=== PATIENT | female | born 1975 | race Hispanic/Latino ===

== ENCOUNTER 2017-01-22 09:19 | Outpatient (CLI) | payer MEDICARE, MEDICAID ==
[2017-01-22 10:13] LABS: ALT (SGPT) 7 U/L (0-55); AST (SGOT) 12 U/L (5-34); Albumin 3.8 g/dL (3.5-5.0); Alkaline Phosphatase 76 U/L (40-150); Anion Gap 12 mmol/L (10-20); BUN (Urea Nitrogen) 22 mg/dL (7.0-18.7); Bilirubin, Total 0.4 mg/dL (0.2-1.2); Calc. Creatinine Clearance 0 mL/min (70-130); Carbon Dioxide 22 mmol/L (22-29); Cardiac Risk 3.6 (Less than 4.5); Chloride 111 mmol/L (98-107); Cholesterol 193 mg/dL (< 200 Desired); Estimated GFR-MDRD 36; Globulin 3.1 g/dL (2.4-3.5); Glucose 86 mg/dL (70-105); HDL Cholesterol 53 mg/dL (>60 Neg Risk); LDL Cholesterol, Calculated 116 mg/dL; Potassium 3.7 mmol/L (3.5-5.1); Protein, Total 6.9 g/dL (6.0-8.3); Sodium 141 mmol/L (136-145); Triglycerides 118 mg/dL (Less than 150)
[2017-01-22 10:28] LABS: #Basophils 0.2 thou/uL (0.0-0.2); #Eosinphils 0.4 thou/uL (0.0-0.7); #Lymphocytes 2.9 thou/uL (1.20-3.40); #Monocytes 0.5 thou/uL (0.11-0.59); %Basophils 1.8 % (0.0-1.0); %Eosinophils 4.5 % (0.0-10.0); %Lymphocytes 29.1 % (21.0-51.0); %Neutrophils 59.7 % (42.0-75.0); Hemoglobin 12.7 g/dL (12.0-16.0); Mean Corpuscular Volume 97.1 fl (81.0-99.0); Mean Platelet Volume 7.1 fL (7.4-10.4); Platelet Count 295 thou/uL (130-400); RBC Distribution Width 12.5 % (11.5-14.5); Red Blood Cell (RBC) Count 3.95 mill/uL (4.20-5.40)
== END 2017-01-22 09:20 | disposition home or self-care (01) ==
LOC: HPCALD 09:19
PROVIDERS: ATTEND Family Medicine
DX: I12.9 Hypertensive chronic kidney disease with stage 1 through stage 4 chronic kidney disease, or unspecified chronic kidney disease (principal); N18.3 Chronic kidney disease, stage 3 (moderate)
CPT/HCPCS: 36415; 80053; 80061; 84443; 85025

== ENCOUNTER 2017-04-17 14:24 | Outpatient (CLI) | payer MEDICARE, MEDICAID ==
[2017-04-17 18:43] LABS: Anion Gap 15 mmol/L (10-20); BUN (Urea Nitrogen) 20 mg/dL (7.0-18.7); Calc. Creatinine Clearance 0 mL/min (70-130); Calcium 8.8 mg/dL (7.8-10.44); Carbon Dioxide 20 mmol/L (22-29); Chloride 111 mmol/L (98-107); Estimated GFR-MDRD 33; Glucose 81 mg/dL (70-105); Potassium 4.7 mmol/L (3.5-5.1); Sodium 141 mmol/L (136-145)
== END 2017-04-17 14:25 | disposition home or self-care (01) ==
LOC: BURLAB 14:24
PROVIDERS: ATTEND Internal Medicine Nephrology
DX: N18.3 Chronic kidney disease, stage 3 (moderate) (principal)
CPT/HCPCS: 36415; 80048

== ENCOUNTER 2017-06-21 19:34 | Emergency (ER) | payer MEDICARE, MEDICAID ==
[2017-06-21 20:23] LABS: INR-International Normal Ratio 0.9; PTT 29.7 SEC (22.9-36.1); Prothrombin Time 12.2 SEC (12.0-14.7)
--- NOTE | 2017-06-21 20:26 | CT ---
CT BRAIN WITHOUT CONTRAST 06/21/2017 HISTORY: A noncontrast CT was done emergently for evaluation of headache in a patient with a prior history of stroke. COMPARISON: 09/06/2013 FINDINGS: No intracranial bleeding, extraaxial hematoma, or subarachnoid hemorrhage is seen. Dense calcificat ion of the vertebral arteries is seen, as usual. Old ischemic changes from a prior stroke are seen in the left frontal/posterior frontal region. There is a little patchy hypolucency in the right pos terior frontal lobe that is probably chronic ischemic change. There are no findings strongly sugges tive of acute stroke, though MRI would be much more sensitive to such. The ventricles are normal in size, except for slight dilation of the left lateral horn, to be expected, given the prior stroke n earby. No mass or edema is seen. The visible paranasal sinuses are clear. IMPRESSION: Old ischemic changes but no acute findings. Findings discussed with Dr. Cates at 1955 hours on 06/21/2017. CODE CR POS: HOME
[2017-06-21 20:27] LABS: BHCG - Serum Negative (NEGATIVE); Pregs Control Background? CLEAR/WHITE (CLR/WHITE); Pregs Control Bar Appear? YES (CONTROL BAR)
[2017-06-21 20:34] LABS: CKMB 0.7 ng/mL (0-6.6); Troponin I Less than 0.010 ng/mL (< 0.028)
[2017-06-21 20:35] LABS: ALT (SGPT) 11 U/L (8-55); AST (SGOT) 18 U/L (5-34); Albumin 3.8 g/dL (3.5-5.0); Alkaline Phosphatase 76 U/L (40-150); Anion Gap 18 mmol/L (10-20); BUN (Urea Nitrogen) 21 mg/dL (7.0-18.7); Bilirubin, Total 0.3 mg/dL (0.2-1.2); Calc. Creatinine Clearance 0 mL/min (70-130); Calcium 9.5 mg/dL (7.8-10.44); Carbon Dioxide 16 mmol/L (22-29); Chloride 111 mmol/L (98-107); Estimated GFR-MDRD 38; Globulin 3.7 g/dL (2.4-3.5); Glucose 83 mg/dL (70-105); Protein, Total 7.5 g/dL (6.0-8.3); Sodium 140 mmol/L (136-145)
[2017-06-21 20:54] LABS: Eosinophils 3 % (0-10); Hemoglobin 13.1 g/dL (12.0-16.0); Lymphocytes 29 % (21-51); MDiff Complete? YES; Mean Corpuscular HGB CONC 34.3 g/dL (32.0-36.0); Mean Corpuscular Hemoglobin 32.6 pg (27.0-31.0); Mean Platelet Volume 6.8 fL (7.4-10.4); Monocytes 7 % (0-10); Neutrophil 61 % (42-75); Platelet Count 258 thou/uL (130-400); RBC Distribution Width 11.9 % (11.5-14.5); Red Blood Cell (RBC) Count 4.01 mill/uL (4.20-5.40); White Blood Cell (WBC) Count 11.2 thou/uL (4.8-10.8)
[2017-06-21] MEDS ORDERED: Ketorolac Tromethamine 30 MG/ML VIAL ONE (21:23)
[2017-06-21 22:31] LABS: CSF Source CSF; Clarity Hazy (Clear); Tube # 1
[2017-06-21 22:32] LABS: RBC Count - Manual 43950 /cumm (None Seen)
[2017-06-21 22:33] LABS: WBC/NonHematics Count - Manual 20 /cumm (0-5)
[2017-06-21 22:35] LABS: CSF Source CSF; Tube # 4
[2017-06-21 22:36] LABS: Clarity Clear (Clear)
[2017-06-21 22:41] LABS: RBC Count - Manual 420 /cumm (None Seen); WBC/NonHematics Count - Manual 6 /cumm (0-5)
[2017-06-22 00:01] LABS: CSF, Glucose 51 mg/dl (40-70); CSF, Protein 39 mg/dL (15-40)
[2017-06-22 00:07] LABS: Color Of CSF Supernatant COLORLESS (Colorless); Tube # 2; Unspun CSF Color COLORLESS (Colorless)
== END 2017-06-21 22:51 | disposition home or self-care (01) ==
LOC: BURERS 19:34
DX: R51 Headache (principal); I10 Essential (primary) hypertension; Z86.73 Personal history of transient ischemic attack (TIA), and cerebral infarction without residual deficits; Z79.899 Other long term (current) drug therapy
CPT/HCPCS: 62270; 70450; 80053; 82553; 82945; 84157; 84484; 84703; 85025; 85060; 85610; 85730; 87070; 87205; 89051; 93005; 96374; 96375; J0360; J1885

== ENCOUNTER 2017-12-21 09:09 | Emergency (ER) | payer MEDICARE, MEDICAID ==
[2017-12-21] MEDS ORDERED: Lidocaine Viscous Sol 2% 15 ml UD Cup ONE (09:49)
[2017-12-21] MEDS ORDERED: Mag-Al Plus 1200 MG/1200 MG/120 MG/30 ML UDCUP ONE (09:49)
[2017-12-21 10:14] LABS: Band 1 % (5-11); Eosinophils 3 % (0-10); Hemoglobin 12.4 g/dL (12.0-16.0); Lymphocytes 19 % (21-51); MDiff Complete? YES; Mean Corpuscular HGB CONC 35.1 g/dL (32.0-36.0); Mean Corpuscular Hemoglobin 32.2 pg (27.0-31.0); Mean Corpuscular Volume 91.7 fl (81.0-99.0); Mean Platelet Volume 8.3 fL (7.4-10.4); Monocytes 7 % (0-10); Neutrophil 70 % (42-75); Platelet Count 249 thou/uL (130-400); RBC Distribution Width 11.8 % (11.5-14.5); Red Blood Cell (RBC) Count 3.85 mill/uL (4.20-5.40); White Blood Cell (WBC) Count 10.4 thou/uL (4.8-10.8)
[2017-12-21] MEDS ORDERED: Mag-Al Plus 1200 MG/1200 MG/120 MG/30 ML UDCUP PO SCH (10:30)
[2017-12-21 10:35] LABS: AST (SGOT) 9 U/L (5-34); Albumin 3.8 g/dL (3.5-5.0); Alkaline Phosphatase 78 U/L (40-150); Anion Gap 13 mmol/L (10-20); Calc. Creatinine Clearance 0 mL/min (70-130); Calcium 9.6 mg/dL (7.8-10.44); Carbon Dioxide 24 mmol/L (22-29); Chloride 105 mmol/L (98-107); Estimated GFR-MDRD 38; Glucose 116 mg/dL (70-105); Potassium 3.5 mmol/L (3.5-5.1); Protein, Total 7.3 g/dL (6.0-8.3); Sodium 138 mmol/L (136-145)
[2017-12-21 10:44] LABS: CKMB 0.7 ng/mL (0-6.6); Troponin I 0.027 ng/mL (< 0.028)
--- NOTE | 2017-12-21 10:56 | RAD ---
PORTABLE CHEST: Date: 12/21/17 An AP portable film at 0925 hours shows a normal sized heart and clear lungs. No infiltrates or effus ions seen. No vascular congestion or edema. The mediastinum appears normal. IMPRESSION: No acute thoracic finding. POS: HOME
== END 2017-12-21 11:11 | disposition home or self-care (01) ==
LOC: BURERS 09:09
DX: K21.0 Gastro-esophageal reflux disease with esophagitis (principal); F17.210 Nicotine dependence, cigarettes, uncomplicated; Z86.73 Personal history of transient ischemic attack (TIA), and cerebral infarction without residual deficits; Z79.899 Other long term (current) drug therapy
CPT/HCPCS: 71045; 80051; 82040; 82310; 82553; 82565; 82947; 83880; 84075; 84155; 84450; 84484; 85025; 93005; 94760

== ENCOUNTER 2018-12-15 09:04 | Outpatient (CLI) | payer MEDICARE, MEDICAID ==
--- NOTE | 2018-12-15 18:41 | CT ---
CT ABDOMEN AND PELVIS: 12/15/2018 TECHNIQUE: Axial slices were acquired, followed by coronal reconstructions. The scan was done without IV contra st, but oral contrast was given. FINDINGS: ABDOMEN: The right lung base is clear. There is some streaking in the left lung base, posteriorly, suggestive of scarring. The liver, spleen, pancreas, adrenal glands, and kidneys show no acute findi ngs. There is a question of a little thickening at the gastric outlet, around the pyloric region, bu t my understanding is that the patient's pain is lower abdomen. The aorta shows calcification, a simón r amount for age, but there is no aneurysm. There is no distention of bowel. There is no sign of diverticulitis or other inflammatory changes of bowel. The appendix appears normal. There is a 2 cm rounded area just medial to the mid ascending colon. It may have some rim calcification in it; however, some of the slices appear to connect it to bowel. Its etiology is unclear, but I am not convinced it is currently significant. PELVIS: No sign of diverticulitis or other inflammatory change. No pelvic masses or fluid collectio ns are seen. There is no free fluid. IMPRESSION: 1. No acute abdominal or pelvic findings. No cause for left lower quadrant pain seen. 2. A 2 cm, rounded lucency with perhaps some rim calcification medial to the ascending colon. I not e that the patient, some years ago, had pancreatitis with what was said to be a large pancreatic pseu docyst in the head. This is just slightly below that location, and I do not know if this is perhaps some sort of a residual of those changes. It is difficult to definitively connect the structure seen today with the pancreatic head. It seems slightly separate from it. POS: HOME
== END 2018-12-15 09:05 | disposition home or self-care (01) ==
LOC: BURCT 09:04
PROVIDERS: ATTEND Family Medicine
DX: R10.32 Left lower quadrant pain (principal)
CPT/HCPCS: 74176

== ENCOUNTER 2019-05-05 19:04 | Emergency (ER) | payer MEDICARE, OTHER ==
[2019-05-05] MEDS ORDERED: Morphine 4 MG/ML VIAL ONE (19:41)
[2019-05-05] MEDS ORDERED: Ondansetron PF 4 MG/2 ML Vial ONE (19:41)
[2019-05-05 20:10] LABS: #Basophils 0.1 thou/uL (0.0-0.2); #Eosinphils 0.3 thou/uL (0.0-0.7); #Lymphocytes 3.2 thou/uL (1.20-3.40); #Monocytes 0.4 thou/uL (0.11-0.59); #Neutrophils 6.4 thou/uL (1.40-6.50); %Basophils 1.2 % (0.0-1.0); %Eosinophils 2.8 % (0.0-10.0); %Lymphocytes 30.3 % (21.0-51.0); %Monocytes 4.2 % (0.0-10.0); %Neutrophils 61.5 % (42.0-75.0); Hemoglobin 11.6 g/dL (12.0-16.0); Mean Corpuscular HGB CONC 32.1 g/dL (32.0-36.0); Mean Corpuscular Hemoglobin 30.7 pg (27.0-31.0); Mean Corpuscular Volume 95.7 fL (78.0-98.0); Mean Platelet Volume 8.7 fL (7.4-10.4); Platelet Count 239 thou/uL (130-400); RBC Distribution Width 13.3 % (11.5-14.5); Red Blood Cell (RBC) Count 3.78 mill/uL (4.20-5.40); White Blood Cell (WBC) Count 10.4 thou/uL (4.8-10.8)
[2019-05-05 20:17] LABS: ALT (SGPT) Less than 7 U/L (8-55); AST (SGOT) 11 U/L (5-34); Albumin 3.7 g/dL (3.5-5.0); Alkaline Phosphatase 76 U/L (40-150); Anion Gap 14 mmol/L (10-20); BUN (Urea Nitrogen) 17 mg/dL (7.0-18.7); Bilirubin, Total 0.2 mg/dL (0.2-1.2); Calc. Creatinine Clearance 0 mL/min (70-130); Carbon Dioxide 20 mmol/L (22-29); Chloride 110 mmol/L (98-107); Estimated GFR-MDRD 46; Globulin 3.2 g/dL (2.4-3.5); Glucose 97 mg/dL (70-105); Lipase 26 U/L (8-78); Potassium 3.9 mmol/L (3.5-5.1); Protein, Total 6.9 g/dL (6.0-8.3); Sodium 140 mmol/L (136-145)
[2019-05-05 20:25] LABS: Bilirubin Negative (Negative); Blood, Urine Negative (Negative); Clarity Cloudy (Clear); Glucose, Urine (Dipstick) Negative (Negative); Leukocyte Trace (Negative); Nitrite Negative (Negative); Protein, Urine (Dipstick) 30 mg/dL (Neg-Trace); Urobilinogen 0.2 mg/dL (Less than 2)
[2019-05-05 20:27] LABS: Bacteria/HPF 4+ HPF (None Seen); RBC/HPF 0-3 HPF (0-3); WBC/HPF 0-3 HPF (0-3)
--- NOTE | 2019-05-05 21:23 | CT ---
CT ABDOMEN AND PELVIS: 05/05/2019 COMPARISON: Prior CT dated 12/15/2018. TECHNIQUE: Scans were done using IV contrast only. FINDINGS: The lung bases are clear. There are no effusions. The liver, spleen, pancreas, adrenal glands, and abdominal aorta show no acute findings. There is probably some scarring involving the kidneys but th is is not new. There is no sign of a solid renal mass or obstruction. A small cyst is seen in the m iddle third of the right kidney and in the lower part of the left kidney. There is no distention of bowel to suggest obstruction. No inflammatory changes are seen around the bowel. Previously, there was evidence of some thickening at the gastric outlet and pyloric region, b ut this is not present today. No free air or free fluid is seen. CT pelvis shows no pelvic masses, inflammatory changes, or other acute changes. There may be a trace of fluid in the cul-de-sac, but it is not excessive. As on the prior scan, a small cystic area is seen just medial to the mid ascending colon, that has a rim calcification around it. It is not clear what it arises from. It seems too high to be associate d with the appendix or the adnexa. Today it measures about 1.8 cm in size, so it is slightly larger than before. IMPRESSION: No acute abdominal or pelvic findings. POS: HOME
== END 2019-05-05 21:20 | disposition home or self-care (01) ==
LOC: BURERS 19:04
DX: R10.32 Left lower quadrant pain (principal); R10.31 Right lower quadrant pain; F17.210 Nicotine dependence, cigarettes, uncomplicated
CPT/HCPCS: 36415; 74177; 80053; 81003; 81015; 83690; 84484; 85025; 93005; 96374; 96375; J2270; J2405

== ENCOUNTER 2020-01-12 21:39 | Emergency (ER) | payer MEDICARE, OTHER ==
[~2020-01-12 21:39] MED LIST: Iopamidol 370 76% 100 ML VIAL ONE
[2020-01-12 22:28] LABS: #Basophils 0.1 thou/uL (0.0-0.2); #Eosinphils 0.3 thou/uL (0.0-0.7); #Lymphocytes 3.4 thou/uL (1.20-3.40); #Monocytes 0.7 thou/uL (0.11-0.59); #Neutrophils 6.4 thou/uL (1.40-6.50); %Lymphocytes 31.2 % (21.0-51.0); %Monocytes 6.5 % (0.0-10.0); %Neutrophils 58.3 % (42.0-75.0); Hemoglobin 11.3 g/dL (12.0-16.0); Mean Corpuscular HGB CONC 31.9 g/dL (32.0-36.0); Mean Corpuscular Hemoglobin 31.1 pg (27.0-31.0); Mean Corpuscular Volume 97.3 fL (78.0-98.0); Mean Platelet Volume 9.1 fL (7.4-10.4); Platelet Count 255 thou/uL (130-400); RBC Distribution Width 12.8 % (11.5-14.5); Red Blood Cell (RBC) Count 3.64 mill/uL (4.20-5.40)
[2020-01-12 22:30] LABS: Prothrombin Time 13.2 SEC (12.0-14.7)
--- NOTE | 2020-01-12 22:32 | CT ---
CT OF THE BRAIN WITHOUT CONTRAST: 01/12/20 Comparison is made with the 06/21/17 CT. There has been very little change management time. Some patchy jude p white matter lucency is consistent with chronic ischemic change. There is relative enlargement of t he frontal horn and anterior body of the left lateral ventricle. There has probably been an old strok e here. The appearance is not much different than before. There were no findings of acute stroke, mas s or edema. No bleeding was seen. IMPRESSION: Chronic ischemic changes but no definite acute findings. Exam little different than in 2017. POS: HOME
[2020-01-12 22:40] LABS: ALT (SGPT) 7 U/L (8-55); AST (SGOT) 10 U/L (5-34); Albumin 3.6 g/dL (3.5-5.0); Alkaline Phosphatase 80 U/L (40-110); Anion Gap 14 mmol/L (10-20); BUN (Urea Nitrogen) 20 mg/dL (7.0-18.7); Bilirubin, Total 0.3 mg/dL (0.2-1.2); Calc. Creatinine Clearance 0 mL/min (70-130); Calcium 8.8 mg/dL (7.8-10.44); Carbon Dioxide 21 mmol/L (22-29); Chloride 111 mmol/L (98-107); Estimated GFR-MDRD 31; Globulin 3.2 g/dL (2.4-3.5); Glucose 105 mg/dL (70-105); Protein, Total 6.8 g/dL (6.0-8.3); Sodium 142 mmol/L (136-145)
[2020-01-12] MEDS ORDERED: Aspirin Chewable 81 MG TAB ONE (23:00)
--- NOTE | 2020-01-13 07:55 | CT ---
PRELIMINARY REPORT/[facility]/EMERGENCY AFTER HOURS PROCEDURE: This report was discussed with Dr. Paul Pugh DO by Estella Moffett on Jan 12, 2020 23:15:00 CDT. Addendum electronically signed by Estella Moffett on January 12, 2020 11:15:44 PM CDT EXAM: CTA Head and Neck with Intravenous Contrast. CLINICAL HISTORY: HX OF STROKE, FALL RECENTLY, DIZZINESS, TECHNIQUE: Axial CTA images of the head and neck performed with intravenous contrast. MIP reconstructed images w ere created and reviewed. Note: Per PQRS, the description of internal carotid artery percent stenosis, including 0 percent or n ormal exam, is based on [place] Symptomatic Carotid Endarterectomy Trial (NASCET) criteria. CONTRAST: With; 70 MLS [id number] COMPARISON: CT - CT BRAIN WO CON - 01/12/2020 10:15 PM CDT FINDINGS: CTA NECK: COMMON CAROTID ARTERIES No significant stenosis. No dissection or occlusion. INTERNAL CAROTID ARTERIES No stenosis by NASCET criteria. No dissection or occlusion. VERTEBRAL ARTERIES Moderate atherosclerotic calcifications causing approximately 50% stenosis in the right V4 segment. M oderate to severe focal narrowing in the distal left V4 segment just prior to the confluence with the right vertebral artery. No occlusion. No aneurysm. No significant stenosis in the cervical portions of the vertebral arteries. CTA HEAD: ANTERIOR CEREBRAL ARTERIES No significant stenosis. No occlusion. No aneurysm. Hypoplastic right A1 segment. MIDDLE CEREBRAL ARTERIES No significant stenosis. No occlusion. No aneurysm. POSTERIOR CEREBRAL ARTERIES No significant stenosis. No occlusion. No aneurysm. BASILAR ARTERY Moderate atherosclerotic calcifications in the basilar artery causing multifocal stenosis of up to 40 %. No occlusion. No aneurysm. OTHER: SOFT TISSUES Nonspecific top normal size to mildly prominent cervical lymph nodes bilaterally. BONES No acute osseous abnormality. IMPRESSION: 1. CTA head: No large vessel occlusion or aneurysm. 2. 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 3. CTA neck: No occlusion, dissection, or significant stenosis. ELECTRONICALLY SIGNED BY: Ronnie Simon MD Jan 12, 2020 11:13:38 PM CDT This report is intended for review by the ordering physician only, in accordance of law. If you recei ve this report in error, please call [facility] at [phone]. FINAL REPORT CT ANGIO OF HEAD AND NECK: Date: 01/12/[address] of the head and neck was performed after a bolus of contrast. Axial, sagittal, and coronal MIP images were obtained. The aortic arch gives off three normal appearing great vessels. The ascending aorta is slightly wider than the descending aorta. There is no evidence of stenosis in the internal, external, or common car otid arteries. A small calcified plaque is beginning at the right carotid bifurcation without any miguelito nosis. Both vertebral arteries fill. The right vertebral artery is smaller than the left. There is about a 5 0% stenosis of the distal right vertebral artery. There is a more severe focal narrowing in the dista l left vertebral artery immediately prior to its joining the right. There are abundant arteriosclerot ic calcifications in the distal portions of the vertebral arteries. The basilar artery fills normally. Both superior cerebellar arteries fill. Anterior cerebral arteries fill normally with the right A1 segment being hypoplastic. Both middle and posterior cerebral arteries fill normally. There is no sign of stenosis of any of these vessels. IMPRESSION: 1. No evidence of vascular occlusion. 2. Narrowings of the distal portions of each vertebral artery, particularly the left. Report in agreement with preliminary reading by [facility]. POS: HOME
== END 2020-01-12 23:45 | disposition home or self-care (01) ==
LOC: BURERS 21:39
DX: I63.9 Cerebral infarction, unspecified (principal); I10 Essential (primary) hypertension; Z79.899 Other long term (current) drug therapy
CPT/HCPCS: 36416; 70450; 70496; 70498; 80053; 84484; 85025; 85610; 93005; 96360; Q9967

== ENCOUNTER 2020-10-11 01:30 | Emergency (ER) | payer MEDICARE, OTHER, MEDICAID ==
[2020-10-11] MEDS ORDERED: Nitroglycerin 0.4 MG TAB 1 EACH ONE (01:58)
[2020-10-11 02:46] LABS: ALT (SGPT) 14 U/L (8-55); AST (SGOT) 15 U/L (5-34); Albumin 3.8 g/dL (3.5-5.0); Alkaline Phosphatase 81 U/L (40-110); Anion Gap 15 mmol/L (10-20); BUN (Urea Nitrogen) 15 mg/dL (7.0-18.7); Bilirubin, Total 0.4 mg/dL (0.2-1.2); Calc. Creatinine Clearance 0 mL/min (70-130); Calcium 9.2 mg/dL (7.8-10.44); Carbon Dioxide 20 mmol/L (22-29); Chloride 110 mmol/L (98-107); Globulin 3.9 g/dL (2.4-3.5); Glucose 94 mg/dL (70-105); Potassium 4.1 mmol/L (3.5-5.1); Protein, Total 7.7 g/dL (6.0-8.3); Sodium 141 mmol/L (136-145)
[2020-10-11 02:56] LABS: Eosinophils 2 % (0-10); Hemoglobin 13.4 g/dL (12.0-16.0); Lymphocytes 29 % (21-51); MDiff Complete? YES; Mean Corpuscular HGB CONC 32.3 g/dL (32.0-36.0); Mean Corpuscular Hemoglobin 31.6 pg (27.0-31.0); Mean Corpuscular Volume 97.9 fL (78.0-98.0); Mean Platelet Volume 8.5 fL (7.4-10.4); Monocytes 4 % (0-10); Neutrophil 65 % (42-75); Platelet Count 219 thou/uL (130-400); Platelet Morphology Comment Appears Adequate; RBC Distribution Width 12.2 % (11.5-14.5); RBC Morphology Normal; Red Blood Cell (RBC) Count 4.24 mill/uL (4.20-5.40); White Blood Cell (WBC) Count 14.1 thou/uL (4.8-10.8)
[2020-10-11] MEDS ORDERED: Aspirin Chewable 81 MG TAB ONE (02:56)
[2020-10-11 03:06] LABS: CKMB 1.1 ng/mL (0-6.6)
[2020-10-11 07:37] LABS: Troponin I 0.041 ng/mL (< 0.028)
--- NOTE | 2020-10-11 08:03 | RAD ---
XR Chest 1 View Portable History: Chest pain Comparison: Chest x-rays January 14, 2020 Findings: Lungs are clear. No pneumothorax. No effusion. Cardiac silhouette and mediastinal contours are within normal limits. Impression: No acute intrathoracic abnormality.
--- NOTE | 2020-10-11 08:23 | CT ---
PRELIMINARY REPORT/[facility]/EMERGENCY AFTER HOURS PROCEDURE: EXAM: CT Head Without Intravenous Contrast. CLINICAL HISTORY: SAUCEDO, ELEV BP, PT. STATES HX OF CVA 16 YEARS AGO WITH RT. SIDED ARM CONSTRICTION TECHNIQUE: Axial computed tomography images of the head/brain without intravenous contrast. COMPARISON: CT\SR - CT BRAIN WO CON - 01/12/2020 10:15 PM CDT FINDINGS: BRAIN: Stable hyperdensity adjacent to the anterior intrahemispheric fissure measuring 3 mm, presumably calc ification. No intracranial hemorrhage. Stable encephalomalacia secondary to infarct about the left sy lvian fissure and frontal lobe. VENTRICLES: No hydrocephalus. ORBITS: The orbits are unremarkable. SINUSES AND MASTOIDS: Mild mucosal thickening left maxillary and ethmoid sinuses. SOFT TISSUES: No significant facial or scalp soft tissue swelling evident. No radiopaque foreign body is seen. BONES: No acute skull fracture. MISCELLANEOUS: Right vertebral and basilar arteries are heavily calcified. IMPRESSION: Stable CT brain. ELECTRONICALLY SIGNED BY: Heather Munoz MD Oct 11, 2020 2:48:51 AM RN SURGERY ICU This report is intended for review by the ordering physician only, in accordance of law. If you recei ve this report in error, please call [facility] at [phone]. FINAL REPORT CT BRAIN WITHOUT CONTRAST: I agree with the preliminary report given by Dr. Heather Munoz of [facility]. POS: OFF
== END 2020-10-11 11:43 | disposition short-term general hospital (02) ==
LOC: BURERS 01:31
DX: I16.0 Hypertensive urgency (principal); R07.89 Other chest pain; Z86.73 Personal history of transient ischemic attack (TIA), and cerebral infarction without residual deficits; I10 Essential (primary) hypertension; F17.210 Nicotine dependence, cigarettes, uncomplicated; Z79.899 Other long term (current) drug therapy
CPT/HCPCS: 70450; 71045; 80053; 82553; 84484; 85025; 93005

== ENCOUNTER 2022-03-24 15:16 | Emergency (ER) | payer MEDICARE, MEDICAID ==
[2022-03-24 15:41] LABS: #Basophils 0.2 thou/uL (0.0-0.2); #Eosinphils 0.3 thou/uL (0.0-0.7); #Lymphocytes 2.2 thou/uL (1.20-3.40); #Monocytes 0.7 thou/uL (0.11-0.59); #Neutrophils 7.2 thou/uL (1.40-6.50); %Basophils 1.4 % (0.0-1.0); %Eosinophils 3.1 % (0.0-10.0); %Lymphocytes 20.9 % (21.0-51.0); %Monocytes 6.6 % (0.0-10.0); Hemoglobin 13.1 g/dL (12.0-16.0); Mean Corpuscular HGB CONC 34.1 g/dL (32.0-36.0); Mean Corpuscular Hemoglobin 32.9 pg (27.0-31.0); Mean Corpuscular Volume 96.4 fL (78.0-98.0); Mean Platelet Volume 8.3 fL (7.4-10.4); Platelet Count 259 thou/uL (130-400); RBC Distribution Width 12.9 % (11.5-14.5); Red Blood Cell (RBC) Count 3.98 mill/uL (4.20-5.40); White Blood Cell (WBC) Count 10.6 thou/uL (4.8-10.8)
[2022-03-24 15:56] LABS: ALT (SGPT) 10 U/L (8-55); AST (SGOT) 13 U/L (5-34); Albumin 3.9 g/dL (3.5-5.0); Alkaline Phosphatase 70 U/L (40-110); Anion Gap 17 mmol/L (10-20); BUN (Urea Nitrogen) 23 mg/dL (7.0-18.7); Bilirubin, Total 0.3 mg/dL (0.2-1.2); Calc. Creatinine Clearance 0 mL/min (70-130); Carbon Dioxide 20 mmol/L (22-29); Chloride 109 mmol/L (98-107); Globulin 3.9 g/dL (2.4-3.5); Glucose 103 mg/dL (70-105); Potassium 4.3 mmol/L (3.5-5.1); Protein, Total 7.8 g/dL (6.0-8.3); Sodium 142 mmol/L (136-145)
[2022-03-24] MEDS ORDERED: Aspirin Chewable 81 MG TAB ONE (16:53)
== END 2022-03-24 17:30 | disposition short-term general hospital (02) ==
LOC: BURERS 15:16
DX: R07.2 Precordial pain (principal); I25.10 Atherosclerotic heart disease of native coronary artery without angina pectoris; F17.210 Nicotine dependence, cigarettes, uncomplicated; Z86.73 Personal history of transient ischemic attack (TIA), and cerebral infarction without residual deficits
CPT/HCPCS: 36415; 71045; 80053; 83880; 84484; 85025; 93005

== ENCOUNTER 2023-01-09 14:39 | Emergency (ER) | payer OTHER ==
[2023-01-09 15:38] LABS: #Basophils 0.1 thou/uL (0.0-0.2); #Eosinphils 0.2 thou/uL (0.0-0.7); #Lymphocytes 3.5 thou/uL (1.20-3.40); #Monocytes 0.6 thou/uL (0.11-0.59); #Neutrophils 6.6 thou/uL (1.40-6.50); %Basophils 1.2 % (0.0-1.0); %Eosinophils 2.3 % (0.0-10.0); %Lymphocytes 31.5 % (21.0-51.0); Hemoglobin 14.2 g/dL (12.0-16.0); Mean Corpuscular HGB CONC 33.4 g/dL (32.0-36.0); Mean Corpuscular Hemoglobin 32.9 pg (27.0-31.0); Mean Corpuscular Volume 98.3 fl (78.0-98.0); Mean Platelet Volume 9.3 fL (7.4-10.4); Platelet Count 268 10x3/uL (130-400); RBC Distribution Width 11.6 % (11.5-14.5); Red Blood Cell (RBC) Count 4.31 mill/uL (4.20-5.40)
[2023-01-09 15:46] LABS: Bilirubin Negative (Negative); Blood, Urine Negative (Negative); Glucose, Urine (Dipstick) Negative (Negative); Ketone, Urine Negative (Negative); Leukocyte Small (Negative); Nitrite Negative (Negative); Protein, Urine (Dipstick) 100 mg/dL (Neg-Trace); Urobilinogen 0.2 mg/dL (Less than 2)
[2023-01-09 15:54] LABS: Clarity Hazy (Clear)
[2023-01-09 15:55] LABS: Bacteria/HPF 2+ HPF (None Seen); RBC/HPF None Seen HPF (0-3); Specific Gravity, Urine 1.004 (1.002-1.036); Squamous Epithelial 0-3 HPF (0-3); WBC/HPF 0-3 HPF (0-3)
[2023-01-09 15:56] LABS: ALT (SGPT) 18 U/L (8-55); AST (SGOT) 17 U/L (5-34); Albumin 4.1 g/dL (3.5-5.0); Alkaline Phosphatase 90 U/L (40-110); Anion Gap 14 mmol/L (10-20); BUN (Urea Nitrogen) 19 mg/dL (7.0-18.7); Bilirubin, Total 0.3 mg/dL (0.2-1.2); Calc. Creatinine Clearance 0 mL/min (70-130); Calcium 9.5 mg/dL (7.8-10.44); Carbon Dioxide 22 mmol/L (22-29); Chloride 110 mmol/L (98-107); Estimated GFR 48; Globulin 3.8 g/dL (2.4-3.5); Glucose 97 mg/dL (70-105); Potassium 3.6 mmol/L (3.5-5.1); Protein, Total 7.9 g/dL (6.0-8.3); Sodium 142 mmol/L (136-145)
== END 2023-01-09 16:40 | disposition home or self-care (01) ==
LOC: BURERS 14:39
DX: N39.0 Urinary tract infection, site not specified (principal); E86.0 Dehydration; R55 Syncope and collapse; I25.10 Atherosclerotic heart disease of native coronary artery without angina pectoris; I10 Essential (primary) hypertension; F17.210 Nicotine dependence, cigarettes, uncomplicated; Z86.73 Personal history of transient ischemic attack (TIA), and cerebral infarction without residual deficits; Z79.899 Other long term (current) drug therapy
CPT/HCPCS: 36415; 80053; 81003; 81015; 84484; 85025; 93005; 96360

== ENCOUNTER 2024-05-20 10:08 | Outpatient (CLI) | payer MEDICARE, OTHER | END 2024-05-20 10:09 | disposition home or self-care (01) | LOC: BURRAD 10:08 | PROVIDERS: ATTEND Nurse Practitioner Family | DX: S49.92XA Unspecified injury of left shoulder and upper arm, initial encounter (principal) ==